=== PATIENT | female | born 1995 | race Two or more races ===

== ENCOUNTER 2020-12-06 17:22 | Emergency (ER) | payer MEDICAID, OTHER ==
[~2020-12-06] VITALS: Ht 162.6 cm; Wt 70.3 kg
[2020-12-06] MEDS ORDERED: ceFAZolin 1GM/50ML 50 ML IV ONE (18:45)
[2020-12-06] MEDS ORDERED: TETANUS-DIPTH-ACEL PERTUSSIS 0.5ML SYR Tdap IM ONE (18:45)
[2020-12-06] MEDS ORDERED: HYDROcodone-ACET 5/325MG TAB ONE ×2 (18:59→19:03)
[2020-12-06] MEDS ORDERED: BACITRACIN TOP OINT 1 UD PKG TOP ONE (19:30)
[2020-12-06 19:37] LABS: Basophils # (auto) 0 10 ^3/uL (0-0.2); Basophils % (auto) 0.3 % (0.0-2.0); Eosinophils # (auto) 0 10 ^3/uL (0-0.8); Eosinophils % (auto) 0.2 % (0.0-7.0); Hematocrit 40.3 % (36.0-46.0); Lymphocytes # (auto) 1.4 10 ^3/uL (0.4-5.4); Lymphocytes % (auto) 7.8 % (10.0-50.0); Mean Corpuscular Hemoglobin 30.1 pg (28.0-32.0); Mean Corpuscular Hgb Conc. 34.8 g/dL (32.0-36.0); Mean Corpuscular Volume 86.5 fL (80.0-100.0); Monocytes # (auto) 0.5 10 ^3/uL (0-1.3); Monocytes % (auto) 3.1 % (0.0-12.0); Neutrophils # (auto) 15.5 10 ^3/uL (1.6-8.6); Neutrophils % (auto) 88.6 % (37.0-80.0); Red Blood Cells 4.65 10^6/uL (4.0-5.20); Red Cell Distribution Width 12.8 % (11.8-14.3); White Blood Cell 17.5 10^3/uL (4.4-10.8)
[2020-12-06 19:44] LABS: Anion Gap 6 (5-15); BUN/Creatinine Ratio 16.4; Blood Urea Nitrogen 12 mg/dL (7-18); Calcium 9.1 mg/dL (8.5-10.1); Carbon Dioxide 25 mmol/L (21-32); Chloride 107 mmol/L (98-107); GFR African American 126 mL/min; GFR Non-African American 104 mL/min; Glucose 105 mg/dL (74-106); Potassium 3.7 mmol/L (3.5-5.1); Sodium 138 mmol/L (136-145)
[2020-12-06 19:46] LABS: Blood Alcohol < 3.0 mg/dL (0-5)
[2020-12-07] MEDS ORDERED: ONDANSETRON HCL 4 MG/2 ML VIAL IV ONE (00:15)
[2020-12-07] MEDS ORDERED: MORPHINE SULFATE 4 MG/ML SYR/VIAL IV ONE (00:15)
[2020-12-07] MEDS ORDERED: CEPH-322 PO (01:01)
[2020-12-07] MEDS ORDERED: HYDR1TAB97 PO (01:01)
[2020-12-07 01:35] VITALS: BP 114/55
== END 2020-12-07 01:43 | disposition home or self-care (01) ==
LOC: ER 17:22 → EDBD 17:22 → ER 12-07 01:43
DX: S62.620B Displaced fracture of middle phalanx of right index finger, initial encounter for open fracture (principal); S50.812A Abrasion of left forearm, initial encounter; W34.09XA Accidental discharge from other specified firearms, initial encounter; Y93.89 Activity, other specified; Y92.89 Other specified places as the place of occurrence of the external cause; Y99.8 Other external cause status
CPT/HCPCS: 36415; 73130; 80048; 80320; 85025; 90471; 90715; 96365; 96366; 96375; 99284; J0690; J2270; J2405; 96374